=== PATIENT | female | born 1945 | race Caucasian/White ===

== ENCOUNTER → 2020-06-17 | Outpatient (REF) | payer MEDICARE, BC, OTHER | LOC: M WUC 14:14 | PROVIDERS: ATTEND Physician Assistant | DX: R30.0 Dysuria (principal) ==

== ENCOUNTER 2023-04-13 14:06 | Inpatient (IN) | payer MEDICARE, BC, OTHER ==
[~2023-04-13] VITALS: Ht 167.6 cm; Wt 69.6 kg
[2023-04-13] MEDS ORDERED: METOPROLOL 5 MG/5 ML VIAL IV STA (15:25)
[2023-04-13 15:39] LABS: BASO % 0.1 % (0.0-1.0); EOS # 0.1 10^3/uL (0.0-0.5); HEMATOCRIT 48.5 % (36.0-47.0); LYMPH # 1.9 10^3/uL (1.5-5.0); LYMPH % 27.1 % (24.0-44.0); MEAN CORPUSCULAR HEMOGLOBIN 32.2 pg (27.0-33.0); MEAN CORPUSCULAR HGB CONC 32.6 g/dl (32.0-36.5); MONO # 0.6 10^3/uL (0.0-0.8); MONO % 8.6 % (2.0-8.0); NEUTROPHILS # 4.4 10^3/uL (1.5-8.5); NEUTROPHILS % 62.8 % (36.0-66.0); PLATELET COUNT, AUTOMATED 233 10^3/uL (150-450)
[2023-04-13 15:44] LABS: HEMOGLOBIN 15.8 g/dl (12.0-15.5)
[2023-04-13 16:13] LABS: BILIRUBIN,DIRECT 0.3 MG/DL (<0.4); BILIRUBIN,TOTAL 0.9 MG/DL (0.3-1.2); CALCIUM LEVEL 10.5 MG/DL (8.3-10.6); CK-MB VALUE MASS 1.4 NG/ML (<3.6); CREATININE FOR GFR 1.06 MG/DL (0.55-1.30); GLOMERULAR FILTRATION RATE 53.8 (>39); MB/CK RELATIVE INDEX 2.15 (< OR =4); POTASSIUM SERUM 4.1 MMOL/L (3.5-5.1); TOTAL PROTEIN 7.3 G/DL (5.7-8.2)
[2023-04-13 16:14] LABS: FREE T4 1.19 NG/DL (0.89-1.76)
[2023-04-13 16:15] LABS: THYROID STIMULATING HORMONE 3.36 uIU/ML (0.55-4.78)
[2023-04-13] MEDS ORDERED: NS 500 ML IV ONE ×2 (17:05→18:25)
[2023-04-13 17:28] LABS: CK-MB VALUE MASS 1.3 NG/ML (<3.6)
[2023-04-13 17:30] LABS: MB/CK RELATIVE INDEX 2.09 (< OR =4)
[2023-04-13] MEDS ORDERED: diphenhydrAMINE 50MG/ML VIAL IV ONE (19:40)
[2023-04-13] MEDS ORDERED: METOCLOPRAMIDE INJ 10MG/2ML VIAL IV ONE (19:40)
[2023-04-13] MEDS ORDERED: DIGOXIN INJ 0.5 MG/2 ML AMP IV STA (19:42)
[2023-04-13] MEDS ORDERED: ACETAMINOPHEN TAB 650MG DOSE (2X325MG) PO PRN (19:45)
[2023-04-13 20:43] LABS: MAGNESIUM LEVEL 1.8 MG/DL (1.8-2.4)
[2023-04-13 21:47] LABS: INR 1.33; PROTHROMBIN TIME 16.7 SECONDS (12.5-14.5)
[2023-04-13 21:48] LABS: PARTIAL THROMBOPLASTIN TIME 35.9 SECONDS (24.8-34.2)
[2023-04-13] MEDS ORDERED: CARV3.12 PO (22:41)
[2023-04-13] MEDS ORDERED: ENTR1TAB PO (22:41)
[2023-04-13] MEDS ORDERED: ALIG4CAP PO (22:41)
[2023-04-13] MEDS ORDERED: SERT50TA29 PO (22:41)
[2023-04-13] MEDS ORDERED: CLAR10TA7 PO (22:41)
[2023-04-13] MEDS ORDERED: ELIQ5TAB PO (22:41)
[2023-04-13] MEDS ORDERED: EZET1TAB96 PO (22:41)
[2023-04-13] MEDS ORDERED: SUMA25TA3 PO (22:41)
[2023-04-13] MEDS ORDERED: IPRA3SP NARES (22:41)
[2023-04-13] MEDS ORDERED: FURO20TA2 PO (22:41)
[2023-04-13] MEDS ORDERED: DOCU100C16 PO (22:41)
[2023-04-13] MEDS ORDERED: LOTE0.5S OU (22:41)
[2023-04-13] MEDS ORDERED: DICY1CAP8 PO (22:41)
[2023-04-13] MEDS ORDERED: BIMA01SOL OU (22:41)
[2023-04-13] MEDS ORDERED: HOME MED LIST COMPLETE! XX SCH (22:45)
[2023-04-13 23:05] VITALS: BP 102/68; TEMP 98.2; O2SAT 95
[2023-04-13] MEDS ORDERED: IPRATROPIUM 0.03% NASAL SPRAY 30 ML (ATROVENT) PRN (23:50)
[2023-04-13] MEDS ORDERED: DOCUSATE SODIUM 100MG CAPSULE PO PRN (23:50)
[2023-04-14] VITALS (9 sets, daily range): BP systolic 96–154; BP diastolic 53–79; TEMP 96.5–97.6; O2SAT 93–97
[2023-04-14] MEDS: APIXABAN 5 MG TAB (ELIQUIS) PO SCH ×3 (00:16→20:14)
[2023-04-14] MEDS: CARVedilol 3.125 MG TAB PO SCH ×2 (00:16→08:51)
[2023-04-14] MEDS: LATANOPROST 0.005% OPHTH SOLN 2.5 ML OU SCH ×2 (02:35→20:14)
[2023-04-14 06:05] LABS: ALBUMIN 3.1 G/DL (3.2-5.2); ALKALINE PHOSPHATASE 72 U/L (46-116); ALT/SGPT 31 U/L (7.0-40); AST/SGOT 15 U/L (<34); BILIRUBIN,TOTAL 0.9 MG/DL (0.3-1.2); BLOOD UREA NITROGEN 15 MG/DL (9-23); CALCIUM LEVEL 9.1 MG/DL (8.3-10.6); CARBON DIOXIDE LEVEL 24 MMOL/L (20-31); CHLORIDE LEVEL 111 MMOL/L (98-107); CREATININE FOR GFR 0.78 MG/DL (0.55-1.30); GLOMERULAR FILTRATION RATE > 60.0 (>39); GLUCOSE, FASTING 93 MG/DL (74-106); MAGNESIUM LEVEL 1.7 MG/DL (1.8-2.4); SODIUM LEVEL 140 MMOL/L (136-145); TOTAL PROTEIN 5.7 G/DL (5.7-8.2)
[2023-04-14 06:06] LABS: MEAN CORPUSCULAR HEMOGLOBIN 31.6 pg (27.0-33.0); MEAN CORPUSCULAR HGB CONC 32.4 g/dl (32.0-36.5); MEAN CORPUSCULAR VOLUME 97.4 fl (80.0-96.0); PLATELET COUNT, AUTOMATED 188 10^3/uL (150-450); RED BLOOD COUNT 4.31 10^6/uL (4.00-5.40); WHITE BLOOD COUNT 6.6 10^3/uL (4.0-10.0)
[2023-04-14 06:11] LABS: HEMOGLOBIN 13.6 g/dl (12.0-15.5)
[2023-04-14] MEDS: MAG SULF 1GM/100ML (MAG RUN) 1 GM in IV 1 EA IV SCH ×2 (08:50→10:18)
[2023-04-14] MEDS: SERTRALINE HCL 50 MG TAB PO SCH (08:51)
[2023-04-14] MEDS ORDERED: DIGOXIN 0.25 MG TAB PO ONE (11:15)
[2023-04-14] MEDS: DIGOXIN 0.25 MG TAB PO SCH (11:59)
[2023-04-14] MEDS ORDERED: ENTR1TAB PO (13:13)
[2023-04-14] MEDS ORDERED: DIGO0.253 PO (13:13)
[2023-04-14] MEDS ORDERED: CARV3.12 PO (13:13)
[2023-04-14] MEDS: ENTRESTO 24-26MG TABLET (SACUBITRIL/VALSARTAN) PO SCH (14:34)
[2023-04-14] MEDS: ONDANSETRON 4MG ORAL DISINTEGRATING TAB SL PRN (16:51)
[2023-04-14 22:22] LABS: BLOOD UREA NITROGEN 16 MG/DL (9-23); CALCIUM LEVEL 8.3 MG/DL (8.3-10.6); CARBON DIOXIDE LEVEL 26 MMOL/L (20-31); CHLORIDE LEVEL 109 MMOL/L (98-107); CREATININE FOR GFR 0.84 MG/DL (0.55-1.30); GLOMERULAR FILTRATION RATE > 60.0 (>39); GLUCOSE, FASTING 103 MG/DL (74-106); POTASSIUM SERUM 4.1 MMOL/L (3.5-5.1); SODIUM LEVEL 140 MMOL/L (136-145)
[2023-04-15] VITALS (9 sets, daily range): BP systolic 96–139; BP diastolic 64–83; PULSE 130; TEMP 96.4–98.6; O2SAT 94–97
[2023-04-15] MEDS: TEMAZEPAM 7.5 MG CAP PO PRN (03:48)
[2023-04-15 06:35] LABS: HEMATOCRIT 41.1 % (36.0-47.0); HEMOGLOBIN 12.9 g/dl (12.0-15.5); MEAN CORPUSCULAR HEMOGLOBIN 31.5 pg (27.0-33.0); MEAN CORPUSCULAR HGB CONC 31.4 g/dl (32.0-36.5); MEAN CORPUSCULAR VOLUME 100.2 fl (80.0-96.0); PLATELET COUNT, AUTOMATED 174 10^3/uL (150-450); WHITE BLOOD COUNT 5.9 10^3/uL (4.0-10.0)
[2023-04-15] MEDS: CARVedilol 3.125 MG TAB PO SCH (06:42)
[2023-04-15 07:02] LABS: BLOOD UREA NITROGEN 14 MG/DL (9-23); CARBON DIOXIDE LEVEL 24 MMOL/L (20-31); CHLORIDE LEVEL 108 MMOL/L (98-107); CREATININE FOR GFR 0.73 MG/DL (0.55-1.30); GLOMERULAR FILTRATION RATE > 60.0 (>39); GLUCOSE, FASTING 99 MG/DL (74-106); MAGNESIUM LEVEL 1.9 MG/DL (1.8-2.4); POTASSIUM SERUM 3.9 MMOL/L (3.5-5.1); SODIUM LEVEL 139 MMOL/L (136-145)
[2023-04-15] MEDS: ENTRESTO 24-26MG TABLET (SACUBITRIL/VALSARTAN) PO SCH (09:00)
[2023-04-15] MEDS ORDERED: CARVedilol 3.125 MG TAB PO SCH (09:00)
[2023-04-15] MEDS: SERTRALINE HCL 50 MG TAB PO SCH (09:21)
[2023-04-15] MEDS: APIXABAN 5 MG TAB (ELIQUIS) PO SCH ×2 (09:22→20:41)
[2023-04-15] MEDS: DIGOXIN 0.25 MG TAB PO SCH (09:22)
[2023-04-15] MEDS: ONDANSETRON 4MG ORAL DISINTEGRATING TAB SL PRN (11:05)
[2023-04-15] MEDS ORDERED: PROMETHAZINE 25 MG TAB PO PRN (13:15)
[2023-04-15] MEDS ORDERED: ONDANSETRON 4MG ORAL DISINTEGRATING TAB SL PRN (15:25)
[2023-04-15 17:00] LABS: PERCENT SATURATION 9.5 % (13.2-45.0)
[2023-04-15 17:03] LABS: FERRITIN 69.4 NG/ML (7.3-270.7)
[2023-04-15 17:04] LABS: FOLATE 16.05 NG/ML (>5.4)
[2023-04-15] MEDS ORDERED: FERRIC CARBOXYMALTOSE INJ 750 MG, VIAL MATE ADAPTER 1 EACH in NS 250 ML IV ONE (19:00)
[2023-04-15] MEDS: LATANOPROST 0.005% OPHTH SOLN 2.5 ML OU SCH (20:41)
[2023-04-15] MEDS ORDERED: METOCLOPRAMIDE INJ 10MG/2ML VIAL IV ONE (22:05)
[2023-04-16] MEDS: TEMAZEPAM 7.5 MG CAP PO PRN (00:16)
[2023-04-16 03:26] VITALS: BP 121/84; TEMP 96.7; O2SAT 92
[2023-04-16 06:45] LABS: HEMATOCRIT 41.2 % (36.0-47.0); HEMOGLOBIN 13.2 g/dl (12.0-15.5); MEAN CORPUSCULAR HEMOGLOBIN 31.9 pg (27.0-33.0); MEAN CORPUSCULAR VOLUME 99.5 fl (80.0-96.0); PLATELET COUNT, AUTOMATED 177 10^3/uL (150-450); RED BLOOD COUNT 4.14 10^6/uL (4.00-5.40); WHITE BLOOD COUNT 6.6 10^3/uL (4.0-10.0)
[2023-04-16 07:04] LABS: BLOOD UREA NITROGEN 14 MG/DL (9-23); CALCIUM LEVEL 9.6 MG/DL (8.3-10.6); CARBON DIOXIDE LEVEL 28 MMOL/L (20-31); CHLORIDE LEVEL 107 MMOL/L (98-107); CREATININE FOR GFR 0.88 MG/DL (0.55-1.30); GLOMERULAR FILTRATION RATE > 60.0 (>39); GLUCOSE, FASTING 101 MG/DL (74-106); MAGNESIUM LEVEL 1.8 MG/DL (1.8-2.4); POTASSIUM SERUM 4.6 MMOL/L (3.5-5.1); SODIUM LEVEL 141 MMOL/L (136-145)
[2023-04-16 07:37] VITALS: BP 114/83; TEMP 96.3; O2SAT 93
[2023-04-16] MEDS: DIGOXIN 0.25 MG TAB PO SCH (08:45)
[2023-04-16] MEDS: ENTRESTO 24-26MG TABLET (SACUBITRIL/VALSARTAN) PO SCH (08:45)
[2023-04-16] MEDS: SERTRALINE HCL 50 MG TAB PO SCH (08:45)
[2023-04-16] MEDS: APIXABAN 5 MG TAB (ELIQUIS) PO SCH (08:46)
[2023-04-16 08:47] VITALS: BP 114/83
[2023-04-16] MEDS: CARVedilol 3.125 MG TAB PO SCH (08:47)
[2023-04-16] MEDS ORDERED: JARD1TAB PO ×2 (09:42→10:28)
[2023-04-16] MEDS ORDERED: FARX1TAB3 PO (09:42)
[2023-04-16] MEDS ORDERED: CARV3.12 PO (10:24)
[2023-04-16] MEDS ORDERED: DIGO0.253 PO (10:27)
== END 2023-04-16 11:52 | disposition home or self-care (01) | DRG 309 ==
LOC: M ED 14:06 → M ED INP 19:42 → M PCU 22:55
PROVIDERS: ADMIT Internal Medicine; ATTEND Internal Medicine
PROC: B246ZZZ Ultrasonography of Right and Left Heart (ICD-10-PCS; principal; 2023-04-14)
DX: I48.91 Unspecified atrial fibrillation (principal); I50.22 Chronic systolic (congestive) heart failure; R07.89 Other chest pain; G43.909 Migraine, unspecified, not intractable, without status migrainosus; Z79.01 Long term (current) use of anticoagulants; Z79.899 Other long term (current) drug therapy; Z88.1 Allergy status to other antibiotic agents; Z88.8 Allergy status to other drugs, medicaments and biological substances; Z91.041 Radiographic dye allergy status; Z20.822 Contact with and (suspected) exposure to COVID-19

== ENCOUNTER → 2024-03-10 | Outpatient (REF) | payer MEDICARE, BC, OTHER ==
[~2024-03-10] MED LIST: ALIG4CAP PO; BIMA01SOL OU; CARV3.12 PO; CLAR10TA7 PO; DICY1CAP8 PO; DIGO0.253 PO; DOCU100C16 PO; ELIQ5TAB PO; ENTR1TAB PO; EZET1TAB96 PO; FARX1TAB3 PO; FURO20TA2 PO; IPRA3SP NARES; JARD1TAB PO; LOTE0.5S OU; SERT50TA29 PO; SUMA25TA3 PO
== END ==
LOC: M LAB REF 12:27
PROVIDERS: ATTEND Physician Assistant
DX: R30.0 Dysuria (principal)

== ENCOUNTER → 2024-04-13 | Outpatient (REF) | payer MEDICARE, BC, OTHER ==
[~2024-04-13] MED LIST changes: +CIPR-249 PO; +ONDA-282 PO
== END ==
LOC: M LAB REF 17:23
PROVIDERS: ATTEND Registered Nurse
DX: R35.0 Frequency of micturition (principal)

== ENCOUNTER 2024-04-15 14:59 | Emergency (ER) | payer MEDICARE, BC ==
[~2024-04-15] VITALS: Ht 167.6 cm; Wt 58.7 kg
[~2024-04-15 14:59] MED LIST changes: -CIPR-249 PO; -ONDA-282 PO
[2024-04-15] MEDS: NS 500 ML IV ONE (15:55)
[2024-04-15 16:10] LABS: BASO % 0.3 % (0.0-1.0); EOS % 0.4 % (0.0-3.0); HEMATOCRIT 49.4 % (36.0-47.0); HEMOGLOBIN 15.8 g/dl (12.0-15.5); LYMPH # 1.4 10^3/uL (1.5-5.0); LYMPH % 17.8 % (24.0-44.0); MEAN CORPUSCULAR HEMOGLOBIN 30.9 pg (27.0-33.0); MEAN CORPUSCULAR VOLUME 96.7 fl (80.0-96.0); MONO # 0.5 10^3/uL (0.0-0.8); MONO % 6.1 % (2.0-8.0); NEUTROPHILS % 75.3 % (36.0-66.0); PLATELET COUNT, AUTOMATED 186 10^3/uL (150-450); RED BLOOD COUNT 5.11 10^6/uL (4.00-5.40); WHITE BLOOD COUNT 7.9 10^3/uL (4.0-10.0)
[2024-04-15 16:40] LABS: C REACTIVE PROTEIN QUANTITATIV < 0.40 MG/DL (<1.0); LIPASE 37 U/L (12-53)
[2024-04-15 16:42] LABS: ALBUMIN 4.1 G/DL (3.2-5.2); ALKALINE PHOSPHATASE 91 U/L (46-116); ALT/SGPT 19 U/L (7.0-40); AST/SGOT 15 U/L (<34); BILIRUBIN,DIRECT 0.4 MG/DL (<0.4); BILIRUBIN,TOTAL 1.5 MG/DL (0.3-1.2); BLOOD UREA NITROGEN 14 MG/DL (9-23); CALCIUM LEVEL 9.6 MG/DL (8.3-10.6); CARBON DIOXIDE LEVEL 28 MMOL/L (20-31); CHLORIDE LEVEL 102 MMOL/L (98-107); CREATININE FOR GFR 0.59 MG/DL (0.55-1.30); GLOMERULAR FILTRATION RATE > 60.0 (>39); GLUCOSE, FASTING 94 MG/DL (74-106); POTASSIUM SERUM 4.5 MMOL/L (3.5-5.1); SODIUM LEVEL 136 MMOL/L (136-145); TOTAL PROTEIN 7.7 G/DL (5.7-8.2)
[2024-04-15] MEDS: cefTRIAXone SOD 1 GM in D5W MINI-BAG PLUS 50 ML IV ONE (17:20)
[2024-04-15] MEDS ORDERED: CIPR-249 PO (17:38)
[2024-04-15] MEDS ORDERED: ONDA-282 PO (17:38)
[2024-04-15 18:19] VITALS: BP 127/61; TEMP 98.4; O2SAT 96
== END 2024-04-15 18:21 | disposition home or self-care (01) ==
LOC: M ED 14:59
DX: N30.00 Acute cystitis without hematuria (principal); N20.0 Calculus of kidney; K80.20 Calculus of gallbladder without cholecystitis without obstruction; K57.30 Diverticulosis of large intestine without perforation or abscess without bleeding; I48.91 Unspecified atrial fibrillation; I50.9 Heart failure, unspecified; Z79.01 Long term (current) use of anticoagulants; Z79.899 Other long term (current) drug therapy; Z88.0 Allergy status to penicillin; Z88.1 Allergy status to other antibiotic agents; Z88.8 Allergy status to other drugs, medicaments and biological substances; Z91.041 Radiographic dye allergy status
CPT/HCPCS: 74176; 80048; 80076; 81001; 83605; 83690; 85025; 86140; 87040; 87086; 93041; 96361; 96365; 99284; J0696

== ENCOUNTER → 2024-05-04 | Outpatient (CLI) | payer MEDICARE, BC ==
[~2024-05-04] MED LIST changes: +CIPR-249 PO; +ONDA-282 PO
[2024-05-04 13:39] LABS: FREE T4 1.12 NG/DL (0.89-1.76)
[2024-05-04 13:48] LABS: THYROID STIMULATING HORMONE 0.841 uIU/ML (0.55-4.78)
== END ==
LOC: M WUC 10:15
PROVIDERS: ATTEND Nurse Practitioner Family
DX: I42.0 Dilated cardiomyopathy (principal); R53.83 Other fatigue; Z95.810 Presence of automatic (implantable) cardiac defibrillator

== ENCOUNTER → 2024-05-10 | Outpatient (REF) | payer MEDICARE, BC ==
[2024-05-10 13:38] LABS: APPEARANCE, URINE CLEAR (CLEAR); BACTERIA, URINE AUTO NEGATIVE (NEGATIVE); BILIRUBIN, URINE AUTO NEGATIVE (NEGATIVE); BLOOD, URINE BLOOD 1+ (NEGATIVE); CALCIUM OXALATE CRYSTALS SMALL; COLOR, URINE YELLOW (YELLOW); GLUCOSE, URINE (UA) AUTO NEGATIVE (NEGATIVE); KETONE, URINE AUTO NEGATIVE (NEGATIVE); LEUKOCYTE ESTERASE, URINE AUTO TRACE (NEGATIVE); MUCUS, URINE SMALL (NEGATIVE); NITRITE, URINE AUTO NEGATIVE (NEGATIVE); PROTEIN, URINE AUTO NEGATIVE (NEGATIVE); RBC, URINE AUTO 1 /HPF (0-3); SPECIFIC GRAVITY URINE AUTO 1.015 (1.002-1.035); SQUAMOUS EPITHELIAL CELL UR AU 0 /HPF (0-6); UROBILINOGEN, URINE AUTO 0.2 mg/dL (0.0-2.0); WBC, URINE AUTO 2 /HPF (0-3)
== END ==
LOC: M SMT 12:37
PROVIDERS: ATTEND Specialist
DX: N39.0 Urinary tract infection, site not specified (principal)

== ENCOUNTER → 2024-05-30 | Outpatient (CLI) | payer MEDICARE, BC | LOC: M RAD 15:01 | PROVIDERS: ATTEND Specialist | DX: N39.0 Urinary tract infection, site not specified (principal); N28.1 Cyst of kidney, acquired ==

== ENCOUNTER → 2025-04-30 | Outpatient (CLI) | payer MEDICARE, BC ==
[~2025-04-30] MED LIST changes: -ALIG4CAP PO; +ALIG4CAP3 PO
[2025-04-30 15:40] LABS: BASO # 0.0 10^3/uL (0.0-0.2); BASO % 0.2 % (0.0-1.0); EOS # 0.1 10^3/uL (0.0-0.5); EOS % 2.5 % (0.0-3.0); LYMPH # 1.4 10^3/uL (1.5-5.0); LYMPH % 25.3 % (24.0-44.0); MONO # 0.6 10^3/uL (0.0-0.8); MONO % 11.2 % (2.0-8.0); NEUTROPHILS # 3.4 10^3/uL (1.5-8.5); NEUTROPHILS % 60.4 % (36.0-66.0); PLATELET COUNT, AUTOMATED 183 10^3/uL (150-450)
[2025-04-30 16:18] LABS: ALT/SGPT 17.0 U/L (7.0-40); AST/SGOT 18.0 U/L (<34); CALCIUM LEVEL 9.6 MG/DL (8.3-10.6); CARBON DIOXIDE LEVEL 28.0 MMOL/L (20-31); CHLORIDE LEVEL 102.0 MMOL/L (98-107); CREATININE FOR GFR 0.75 MG/DL (0.55-1.30); GLOMERULAR FILTRATION RATE 82.0 (>39); MAGNESIUM LEVEL 1.9 MG/DL (1.8-2.4); POTASSIUM SERUM 4.5 MMOL/L (3.5-5.1); SODIUM LEVEL 142.0 MMOL/L (136-145)
[2025-04-30 16:20] LABS: FREE T4 1.21 NG/DL (0.89-1.76)
== END ==
LOC: M PLALAB 12:09
PROVIDERS: ATTEND Nurse Practitioner Adult Health
DX: I42.0 Dilated cardiomyopathy (principal); I50.22 Chronic systolic (congestive) heart failure; I48.19 Other persistent atrial fibrillation